=== PATIENT | male | born 1975 | race Caucasian/White ===

== ENCOUNTER 2024-05-18 07:33 | Inpatient (IN) | payer BC, SELFPAY ==
[2024-05-18] VITALS (21 sets, daily range): BP systolic 104–132; BP diastolic 67–83; PULSE 69–91; RESP 14–20; TEMP 36.4–36.8; O2SAT 93–99; BMI 27.5; BMI 29.2
--- NOTE | 2024-05-18 07:38 | CRLHL7_ITS ---
For Patients: As a result of the Cures Act, medical imaging exams and procedure reports are released immediately into your electronic medical record. You may view this report before your referring provider. If you have questions, please contact your health care provider. INDICATION: Fever and cough COMPARISON: None TECHNIQUE: Single view examination FINDINGS: TUBES AND LINES: None. HEART AND MEDIASTINUM: Enlarged heart. LUNGS AND PLEURAL SPACES: The lungs appear normal.The pleural spaces are unremarkable. OSSEOUS STRUCTURES: Age-appropriate appearance. No acute focal finding. IMPRESSION: Enlarged heart. Lungs and pleural spaces appear normal. Dictated by Jose Williamson MD @ 05/18/2024 8:15:23 AM (Electronically Signed)
[2024-05-18 08:34] LABS: PCR FLU A Negative PCR FLU A (Negative); PCR FLU B Negative PCR FLU B (Negative); PCR RSV Negative PCR RSV (Negative); SARS PCR* POSITIVE SARS-CoV-2 (Negative)
--- OUTSIDE RECORDS SUMMARY | 2024-05-18 08:39 | XMS_ITS | Clinical Summary ---
Author Organization [facility] Address [place], [place] [address] Care Team Providers Care Drupal Programmer Name Role Phone Jaron Hough MD Primary Care Provider Allergies Active Allergy Reactions Criticality Noted Date Comments Gluten 05/11/2009 Celiac disease. Medications Medication Sig Dispensed Refills Start Date End Date Status cholecalciferol (VITAMIN D3) 2,000 unit capsule Take 2 capsules by mouth once daily. 0 11/27/2011 Active multivitamin (MVI) tablet Take 1 tablet by mouth once daily. 0 11/27/2011 Active fludrocortisone (FLORINEF) 0.1 mg tabletIndications:A ddison's disease (HC) TAKE 1 TABLET(0.1 MG) BY MOUTH EVERY DAY 90 Tablet 3 09/04/2023 Active predniSONE (DELTASONE) 5 mg tabletIndications:A ddison's disease (HC) TAKE 1 TABLET BY MOUTH DAILY WITH A MEAL. 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 Postablative hypothyroidism 04/14/2013 Overview (04/14/2013): History of Graves' disease Edema 09/06/2010 Headache(784.0) 07/22/2009 Celiac disease 03/23/2008 Resolved Problems Problem Noted Date Diagnosed Date Resolved Date Glucocorticoid deficiency 01/28/2007 Unspecified hypothyroidism 0 04/14/2013 Encounters Date Type Department Care Team Description 04/28/2024 Refill [facility] [address] [place] [address] Maurice Mosquera MD Refill Request (Levothyroxine) from Last 3 Months Immunizations Name Administration Dates Next Due Influenza, IIV4 08/09/2015 MMR 05/23/1992 Pneumococcal Poly,23-Valent (Pneumovax) 04/14/20 13 Pneumococcal conj 13-Valent (Prevnar 13) 015 Tdap 06/19/2007 Social History Tobacco Use Types Packs/Day Years Used Date Smoking Tobacco: Former Cigarettes 1.5 10 0 04/06/1989 - 04/06/1999 Smokeless Tobacco: Never Tobacco Cessation:Counseling Given: Yes Alcohol Use Standard Drinks/Week Comments Yes 0 (1 standard drink = 0.6 oz pur e alcohol) sparinglly Social Connections Answer Date Recorded Frequency of Communication with Friends and Fami ly Not on file 08/13/2022 Financial Resource Strain Answer Date R ecorded Difficulty of Paying Living Expenses Not on file 08/19/2021 Difficulty of Paying Living Expenses Not on file 08/19/2021 Sex and Gender Information Value Date Recorded Sex Assigned at Not on file Gender Identity Not on file Sexual Orientation Not on file Obstetrics History Last Filed Vital Signs Vital Sign Reading Time Taken Comments Blood Pressure 116/70 12/31/2016 4:36 PM CDT Pulse 80 12/31/2016 4:36 PM CDT Temperature 36.7 ??C (98.1 ??F) 04/02/2014 4:19 PM CD T Respiratory Rate 16 12/31/2016 4:36 PM CDT Oxygen Saturation 98% 04/02/2014 4:19 PM CDT Inhaled Oxygen Concentration - - Weight 100.2 kg (221 lb) 12/31/2016 4:36 PM CDT Height 188.2 cm (6' 2.09) 08/09/2015 4:13 PM CS T Body Mass Index 28.3 08/09/2015 4:13 PM ADMISSION NURSE Plan of Treatment Health Maintenance Due Date Last Done Comments Depression screening for age 12+ 1986 HIV for age 15-65 1989 BMI (ht and wt on same day) for age 18+ 1992 Hepatitis C screening for age 18-79 1992 Colonoscopy through age 75 2019 Lipids for age 45-75 2019 01/25/2006 Tetanus booster 03/14/2021 03/14/2011 (Comp leted outside of [facility]), 06/19/2007 COVID-19 vaccine series (2023- season) 2024 12/06/2020, 11/15/2020 Influenza for age 9-49 04/19/2024 08/09/2015, 2014 Tdap Completed 06/19/2007 Pneumococcal series for age 6-64 Aged Out 08/09/2015, 04/14/2013 No longer eligibl e based on patient's age to complete this topic Procedures Procedure Name Priority Date/Time Associated Diagnosis Comments LIPID PANEL Timed 01/25/2006 7:20 AM CDT from Last 3 Months or Most Recently Relevant to Health Maintenance Results * (ABNORMAL) LIPID PANEL (01/25/2006 7:20 AM CDT) CHOLESTEROL,TOTAL 161 110 - 199 mg/dL [facility] TRIGLYCERIDES 97 <150 mg/dL [facility] HDL CHOLESTEROL 26(L) >40 mg/dL [facility] CHOL/HDL RATIO 6.19(H) <4.51 [facility] LDL CHOLESTEROL 116 <131 mg/dL [facility] PATIENT STATUS Fasting [facility] 01/25/2006 7:20 AM CDT 01/25/2006 7:12 AM CDT Jaron Hough MD CHEMISTRY [facility] [address] [place] [address] from Last 3 Months or Most Recently Relevant to Health Maintenance Care Teams Drupal Programmer Relationship Specialty Start Date End Date Jaron Hough MD [address] [place] [address] PCP - General 01/18/06
[2024-05-18] MEDS: 0.9 % SODIUM CHLORIDE 500 ML 500 ML IV (09:07)
[2024-05-18] MEDS: HYDROCORTISONE SOD SUCCINATE 50 MG/ML inj 100 MG IVP (09:08)
[2024-05-18 09:27] LABS: Basophils Absolute Auto 0.03 K/uL (0.00-0.30); Basophils Percent Auto 0.3 % (0.0-3.0); Eosinophils Absolute Auto 0.07 K/uL (0.00-0.50); Eosinophils Percent Auto 0.8 % (0.0-7.0); Hematocrit 37.6 % (37.0-53.0); Hemoglobin* 13.5 gm/dL (13.5-17.5); Immature Granulocytes Abs Auto 0.01 K/uL (0.00-0.30); Immature Granulocytes Pct Auto 0.1 %; Lymphocytes Percent Auto 4.5 % (20-44); Mean Corpuscular HGB Conc 36 gm/dL (32-36); Mean Corpuscular Hemoglobin 30 pg (26-34); Mean Corpuscular Volume 84 fL (80-100); Monocytes Percent Auto 16.4 % (0.0-11.0); Neutrophils Percent Auto 77.9 % (42.0-72.0); Platelet Count* 172 K/uL (140-440); RDW Coefficient of Variation % 11.7 % (11.5-15.5); Red Blood Count 4.48 m/uL (4.30-5.90); White Blood Count* 8.66 K/uL (4.50-11.00)
[2024-05-18 09:29] LABS: Slide Review Reflex No
[2024-05-18 09:52] LABS: Chloride* 87 mmol/L (96-114)
[2024-05-18 09:53] LABS: Potassium* 3.8 mmol/L (3.6-5.1)
[2024-05-18 09:55] LABS: Creatinine* 0.9 mg/dL (0.5-1.5); Est. Creatinine Clearance* 118.67; Estimated Glomerular Filt Rate 105 ml/min
[2024-05-18 09:56] LABS: Alanine Aminotransferase* 23 U/L (4-50); Alkaline Phosphatase* 47 U/L (40-150); Anion Gap 10 mEq/L (7-15); Aspartate Amino Transferase* 29 U/L (12-35); Bilirubin Direct* 0.2 mg/dL (0.0-0.5); Bilirubin Total* 0.9 mg/dL (0.1-1.5); Blood Urea Nitrogen* 13 mg/dL (5-24); Carbon Dioxide* 20 mmol/L (20-32); Glucose* 94 mg/dL (60-115); Magnesium* 1.6 mg/dL (1.5-2.6); Total Protein* 6.7 g/dL (6.0-8.3)
[2024-05-18 09:57] LABS: Sodium* 117 mmol/L (135-149)
[2024-05-18 09:58] LABS: D Dimer Quantitative* 0.36 ug/ml (0.00-0.50)
[2024-05-18 10:02] LABS: NT Pro B Type NatriureticPept* 243 pg/mL
[2024-05-18] MEDS: 3 % SODIUM CHLORIDE 500 ml 50 ML IV (10:52)
--- NOTE | 2024-05-18 12:03 | ED.GENADULT ---
HPI - General Adult General Date Seen: 05/18/24 Chief complaint: Shortness of Breath/Dyspnea Stated complaint: Hard time breathing, fever, cough Time Seen by Provider: 05/18/24 08:03 Source: patient, RN notes reviewed and old records reviewed Mode of arrival: ambulatory Limitations: no limitations History of Present Illness HPI narrative: Patient is a 48-year-old male who presents for evaluation of sore throat, cough, weakness. He got sick 5 days ago on , says he started to feel worse on Saturday, initially just had a sore throat but then developed cough and weakness which has gotten progressively worse instead of improving. He does note that he has a history of [place]'s and says sometimes that creates additional problems for him. He feels like he has been keeping up on fluids and has been taking all of his medications. He has not had a fever that he knows of. Did do a COVID test back on which he says was negative. He has a cough, has not felt significantly short of breath, no chest pain. Denies vomiting or diarrhea. Related Data Home Medications ?Medication ?Instructions ?Recorded ?Confirmed levothyroxine 75 mcg capsule 75 mcg PO QDAY 04/23/24 04/23/24 prednisone 5 mg tablet 5 mg PO DAILY 04/23/24 05/18/24 fludrocortisone 0.1 mg tablet 0.1 mg PO DAILY 05/18/24 05/18/24 levothyroxine 137 mcg tablet 137 mcg PO DAILY 05/18/24 05/18/24 Allergies Allergy/AdvReac Type Severity Reaction Status Date / Time wheat Allergy Intermediate violently Verified 05/18/24 08:02 ill gluten Allergy Unknown Verified 05/18/24 08:02 Review of Systems Status of ROS: Reports: 10 or more systems reviewed and unremarkable except as noted in History and below [facility] Medical History Celiac disease ?K90.0 - Celiac disease (ICD-10) Graves disease ?E05.00 - Thyrotoxicosis with diffuse goiter without thyrotoxic crisis or storm (ICD-10) 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 In general, an alert, nontoxic male. Breathing easily, looks fatigued. Head: Normocephalic, atraumatic. Eyes: Pupils are equal reactive. Extraocular movements are full. Conjunctivae are normal. ENT: Mucous membranes are slightly dry. Throat is erythematous, no exudate or edema. Neck: Supple without lymphadenopathy. No meningeal signs. Heart: Regular rate and rhythm. No murmur or rub. Lungs: Clear bilaterally. No increased work of breathing, crackles or wheezes. Abdomen: Soft and nontender. No organomegaly. Extremities: Well perfused. No edema. No calf tenderness. Pulses intact. Neurologic: Patient is alert and oriented to person and place. Speech is fluent. Face is symmetric. Moves all extremities equally. Affect: Normal. Skin: Warm and dry. Well perfused. Const: Vital Signs, click to edit/add: Vital Signs - 24 hr 05/18/24 07:52 05/18/24 09:00 05/18/24 09:30 Temperature 97.6 F Pulse Rate [Pulse Oximeter] 81 81 80 Respiratory Rate 18 16 18 Blood Pressure [Ri ght Upper Arm] 106/68 104/74 119/71 Pulse Oximetry 99 97 96 Oxygen Delivery Me thod Room Air Room Air Room Air 05/18/24 10:00 05/18/24 10:30 05/18/24 11:00 Temperature Pulse Rate [Pulse Oximeter] 75 76 79 Respiratory Rate 18 20 18 Blood Pressure [Ri ght Upper Arm] 132/73 123/74 118/75 Pulse Oximetry 96 98 98 Oxygen Delivery Me thod Room Air Room Air Room Air 05/18/24 11:30 05/18/24 12:00 05/18/24 12:30 Temperature Pulse Rate [Pulse Oximeter] 80 82 78 Respiratory Rate 18 20 18 Blood Pressure [Ri ght Upper Arm] 114/74 112/78 121/75 Pulse Oximetry 96 96 95 Oxygen Delivery Me thod Room Air Room Air Room Air 05/18/24 13:00 05/18/24 13:30 05/18/24 14:00 Temperature Pulse Rate [Pulse Oximeter] 81 78 76 Respiratory Rate 16 18 18 Blood Pressure [Ri ght Upper Arm] 118/79 118/78 125/79 Pulse Oximetry 95 93 94 Oxygen Delivery Me thod Room Air Room Air Room Air 05/18/24 14:30 05/18/24 15:00 Temperature Pulse Rate [Pulse Oximeter] 79 78 Respiratory Rate 18 20 Blood Pressure [Ri ght Upper Arm] 119/76 113/67 Pulse Oximetry 96 97 Oxygen Delivery Me thod Room Air Room Air Documenting provider has reviewed patient's vital signs: yes Course Course ED Course: An IV was placed, I ordered 500 mL of normal saline to start with. He had a portable chest x-ray, this is mostly notable for cardiomegaly. The only previous x-rays we have her from 2007 and 2013, I do not see evidence of cardiomegaly at that time. There is no evidence of congestive heart failure or infiltrate. Final radiology read as follows:Patient: RAHEEL BEGUM Facility: [facility] Site . Site : 1975 Study: XRay-Chest PORTABLE-05/18/2024 8:03:29 AM Ordering Physician: Amanda Weber Final Report: INDICATION: Fever and cough COMPARISON: None TECHNIQUE: Single view examination FINDINGS: TUBES AND LINES: None. HEART AND MEDIASTINUM: Enlarged heart. LUNGS AND PLEURAL SPACES: The lungs appear normal.The pleural spaces are unremarkable. OSSEOUS STRUCTURES: Age-appropriate appearance. No acute focal finding. IMPRESSION: Enlarged heart. Lungs and pleural spaces appear normal. In terms of labs, these are most notable for a positive COVID test and a sodium of 117. His white blood cell count is normal at 8.6, slight left shift with 78% neutrophils. Hemoglobin is normal. Notably his potassium is 3.8. BUN and creatinine are normal, normal gap. Calcium is recorded as slightly low at 8 and magnesium is 1.6. LFTs unremarkable. CRP is mildly elevated at 7. BNP his 243. His TSH is normal. D-dimer is 0.36. Overall, patient will require admission for his hyponatremia. I did order 3% saline to run over 90 minutes. He also had hydrocortisone 100 mg IV on arrival. I would recommend that he have an echo at some point given the relatively significant change in the size of his heart over the past 10 years, however I do not think this appears to be actively contributing to his symptoms today. Point of care troponin was 0, he also had an EKG which by my review shows a sinus rhythm, first-degree AV block, no acute ST segment changes, no finding suggestive of LVH. Delayed the floor due to lack of beds. Patient has been stable in the emergency department without specific complaints. Repeat metabolic panel ordered results pending. Care discussed with Dr. Rodriguez, patient admitted to hospitalist service for definitive care. Vital Signs Vital signs: Initial Vital Signs Respiratory Effort Labored 05/18/24 07:37 Respiratory Depth Shallow 05/18/24 07:37 Respiratory Pattern Tachypnea 05/18/24 07:37 Vital Signs Temperature 97.6 F 05/18/24 07:52 Pulse Rate 81 05/18/24 07:52 Respiratory Rate 18 05/18/24 07:52 Blood Pressure 106/68 05/18/24 07:52 Pulse Oximetry 99 05/18/24 07:52 Oxygen Delivery Method Room Air 05/18/24 07:52 Temperature 97.6 F 05/18/24 07:52 Pulse Rate 78 05/18/24 15:00 Respiratory Rate 20 05/18/24 15:00 Blood Pressure 113/67 05/18/24 15:00 Pulse Oximetry 97 05/18/24 15:00 Oxygen Delivery Method Room Air 05/18/24 15:00 Medications Administered Medications: Discontinued Medications Generic Name Dose Route Start Last Admin Trade Name Boniq PRN Reason Stop Dose Admin Hydrocortisone Sodium Succinate 100 mg 05/18/24 08:21 05/18/24 09:08 Hydrocortisone Sod Succinate 50 Mg/Ml Inj IVP 05/18/24 08:22 100 mg ONCE ONE Administration Sodium Chloride 500 mls @ 500 mls/hr 05/18/24 08:21 05/18/24 12:33 0.9 % Sodium Chloride 500 Ml IV 05/18/24 09:20 Infused .Q1H ONE Infusion Sodium Chloride 50 mls @ 50 mls/hr 05/18/24 10:45 05/18/24 12:32 3 % Sodium Chloride 500 Ml IV 05/18/24 11:44 Infused ONCE ONE Infusion Medical Decision Making Lab Data Labs: Lab Results 05/18/24 05/18/24 Range/Units 07:47 09:03 WBC 8.66 (4.50-11.00) K/uL RBC 4.48 (4.30-5.90) m/uL Hgb 13.5 (13.5-17.5) gm/dL Hct 37.6 (37.0-53.0) % MCV 84 (80-100) fL MCH 30 (26-34) pg MCHC 36 (32-36) gm/dL RDW Coeff of Aldo 11.7 (11.5-15.5) % Plt Count 172 (140-440) K/uL Neut % (Auto) 77.9 H (42.0-72.0) % Lymph % (Auto) 4.5 L (20-44) % Clayton % (Auto) 16.4 H (0.0-11.0) % Eos % (Auto) 0.8 (0.0-7.0) % Baso % (Auto) 0.3 (0.0-3.0) % Neut # (Auto) 6.70 (1.7-7.0) K/uL Lymph # (Auto) 0.40 L (0.90-2.90) K/uL Clayton # (Auto) 1.40 H (0.00-0.90) K/UL Eos # (Auto) 0.07 (0.00-0.50) K/uL Baso # (Auto) 0.03 (0.00-0.30) K/uL Abs Immat Gran (auto) 0.01 (0.00-0.30) K/uL Imm/Tot Granulo (auto) 0.1 % D-Dimer Quant (PE/DVT) 0.36 (0.00-0.50) ug/ml Sodium 117 L* (135-149) mmol/L Potassium 3.8 (3.6-5.1) mmol/L Chloride 87 L (96-114) mmol/L Carbon Dioxide 20 (20-32) mmol/L Anion Gap 10 (7-15) mEq/L BUN 13 (5-24) mg/dL Creatinine 0.9 (0.5-1.5) mg/dL Estimated Creat Clear 118.67 Estimated GFR 105 ml/min Glucose 94 (60-115) mg/dL Calcium 8.0 L (8.4-10.6) mg/dL Magnesium 1.6 (1.5-2.6) mg/dL Total Bilirubin 0.9 (0.1-1.5) mg/dL Direct Bilirubin 0.2 (0.0-0.5) mg/dL AST 29 (12-35) U/L ALT 23 (4-50) U/L Alkaline Phosphatase 47 (40-150) U/L C-Reactive Protein 7.0 H (0.5-1.0) mg/dL NT-Pro-B Natriuret Pep 243 pg/mL Total Protein 6.7 (6.0-8.3) g/dL Albumin 4.0 (3.3-5.0) g/dL TSH 1.480 (0.270-4.200) uIU/mL SARS-CoV-2 (PCR) POSITIVE SARS-CoV-2 A (Negative) Influenza Type A (PCR) Negative PCR FLU A (Negative) Influenza Type B (PCR) Negative PCR FLU B (Negative) RSV (PCR) Negative PCR RSV (Negative) POC Troponin I 0.00 L (0.01-0.04) ng/ml Discharge Plan Discharge Clinical Impression: Hyponatremia, COVID-19 Patient Disposition: Admitted As Observation Condition: Stable
[2024-05-18 16:00] LABS: Chloride* 89 mmol/L (96-114); Potassium* 4.3 mmol/L (3.6-5.1)
[2024-05-18 16:03] LABS: Anion Gap 7 mEq/L (7-15); Carbon Dioxide* 24 mmol/L (20-32); Estimated Glomerular Filt Rate 92 ml/min
[2024-05-18 16:04] LABS: Blood Urea Nitrogen* 12 mg/dL (5-24); Glucose* 110 mg/dL (60-115)
[2024-05-18 16:07] LABS: Sodium* 120 mmol/L (135-149)
[2024-05-18] MEDS: HYDROCORTISONE SOD SUCCINATE 50 MG/ML inj IVP (19:06)
--- NOTE | 2024-05-18 19:31 | PC.NURSE ---
Pt arrived to floor at 1730. Pt states they have a headache though it is tolerable rating 2/10. Vitally stable, spo2 greater than 90% on room air. Moves independently.
[2024-05-18] MEDS: ACETAMINOPHEN 325 MG TABLET 650 MG PO (21:45)
[2024-05-18] MEDS: ENOXAPARIN 40 MG/0.4 ML INJ SUBCUT (21:46)
[2024-05-18 22:34] LABS: Sodium* 126 mmol/L (135-149)
--- NOTE | 2024-05-18 22:49 | PM.IMHP1 ---
Hospitalist- H&P: HPI History of Present Illness Date Seen: 05/18/24 Chief complaint: Hard time breathing, fever, cough Narrative: Kristopher Chao is a 48 year old male with [place]'s disease admitted through the emergency department with a 4 day history of illness. Starting 4 days ago he had a headache. He did a home COVID test at that time which was negative. Over the next couple days symptoms progressed with the development of nasal congestion, rhinorrhea, cough, dyspnea, fever, fatigue, malaise, anorexia, nausea. He has been able to drink fluids but eating very little. For José Luis's he takes prednisone 10 mg daily plus fludrocortisone 0.1 mg daily. Last night he took an extra 10 mg of prednisone as a stress dose. He has a history of mitral valve regurgitation. In reviewing his records I see that he had an echocardiogram 09/18/2010 showing moderate mitral regurgitation. He has not had any follow-up of this since that time. 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 Review of Systems Narrative: Prior to this last few days he was feeling well. 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 He rarely drinks alcohol. He does not smoke. He follows a gluten free diet. What is your current living situation?: I presently have a place to live Problems where you live: no known problems Problems where you live details: no In the past 12 months, utilities in danger of being shut off: no In past 12 months, lack of transportation kept you from medical appts, meetings, work, or getting things needed for daily living: no In the past 12 mos, have been you worried that your food would run out before you had money to buy more?: never true In the past 12 mos, the food you bought just didn't last and you didn't have money to buy more?: never true Highest level of school completed/degree received: some college, no degree Smoking Status: Never smoker Do you use any of these nicotine containing products: None How often do you have a drink containing alcohol: monthly or less How often do you have six or more drinks on one occasion: Less than monthly AUDIT-C Alcohol total score: 2 Non-prescribed substance use: denies use Caffeine: Yes How often does anyone, including family, friends and others, physically hurt you: never How often does anyone, including family, friends and others, insult or talk down to you: never How often does anyone, including family, friends and others, threaten you with harm: never How often does anyone, including family, friends and others, scream or curse at you: never Meds Home Medications and Allergies Home Medications ?Medication ?Instructions ?Recorded ?Confirmed ?Type prednisone 5 mg tablet 10 mg PO DAILY 04/23/24 05/18/24 History cholecalciferol (vitamin D3) 50 100 mcg PO DAILY 05/18/24 05/18/24 History mcg (2,000 unit) tablet fludrocortisone 0.1 mg tablet 0.1 mg PO DAILY 05/18/24 05/18/24 History levothyroxine 137 mcg tablet 137 mcg PO DAILY 05/18/24 05/18/24 History multivitamin 1 tab PO DAILY 05/18/24 05/18/24 History Allergies Allergy/AdvReac Type Severity Reaction Status Date / Time wheat Allergy Intermediate violently Verified 05/18/24 08:02 ill gluten Allergy Unknown Verified 05/18/24 08:02 Exam Narrative: Exam Narrative: He is alert and appears in no distress. He is oriented to his circumstances and gives his own history. Oropharynx is normal. Neck is supple without mass or adenopathy. Respirations are clear to auscultation. No wheezing rales or rhonchi. Cardiovascular: S1, S2, 2/6 systolic murmur heard best at the left lower sternal border. Abdomen: Bowel sounds active. Abdomen is soft without tenderness or mass. External genitalia normal. Extremities normal. No edema. Good peripheral pulses. No rash. Const: Vital Signs, click to edit/add: Vital Signs - 24 hr 05/18/24 07:52 05/18/24 09:00 05/18/24 09:30 Temperature 97.6 F Pulse Rate Pulse Rate [Pulse Oximeter] 81 81 80 Respiratory Rate 18 16 18 Blood Pressure Blood Pressure [Le ft Arm] Blood Pressure [Ri ght Upper Arm] 106/68 104/74 119/71 Pulse Oximetry 99 97 96 Oxygen Delivery Me thod Room Air Room Air Room Air 05/18/24 10:00 05/18/24 10:30 05/18/24 11:00 Temperature Pulse Rate Pulse Rate [Pulse Oximeter] 75 76 79 Respiratory Rate 18 20 18 Blood Pressure Blood Pressure [Le ft Arm] Blood Pressure [Ri ght Upper Arm] 132/73 123/74 118/75 Pulse Oximetry 96 98 98 [facility] Room [facility] Room Air 05/18/24 11:30 05/18/24 12:00 05/18/24 12:30 Temperature Pulse Rate Pulse Rate [Pulse Oximeter] 80 82 78 Respiratory Rate 18 20 18 Blood Pressure Blood Pressure [Le ft Arm] Blood Pressure [Ri ght Upper Arm] 114/74 112/78 121/75 Pulse Oximetry 96 96 95 Oxygen Delivery De thod Room Air Room Air Room Air 05/18/24 13:00 05/18/24 13:30 05/18/24 14:00 Temperature Pulse Rate Pulse Rate [Pulse Oximeter] 81 78 76 Respiratory Rate 16 18 18 Blood Pressure Blood Pressure [Le ft Arm] Blood Pressure [Ri ght Upper Arm] 118/79 118/78 125/79 Pulse Oximetry 95 93 94 Oxygen Delivery De thod Room Air Room Air Room Air 05/18/24 14:30 05/18/24 15:00 05/18/24 15:46 Temperature Pulse Rate 91 Pulse Rate [Pulse Oximeter] 79 78 Respiratory Rate 18 20 Blood Pressure Blood Pressure [Le ft Arm] Blood Pressure [Ri ght Upper Arm] 119/76 113/67 Pulse Oximetry 96 97 96 [facility] Room Air 05/18/24 16:02 05/18/24 16:32 05/18/24 17:02 Temperature Pulse Rate 76 78 79 Pulse Rate [Pulse Oximeter] Respiratory Rate 16 14 Blood Pressure 126/78 114/72 111/70 Blood Pressure [Le ft Arm] Blood Pressure [Ri ght Upper Arm] Pulse Oximetry 97 95 97 Oxygen Delivery Me thod Room Air Room Air Room Air 05/18/24 17:30 05/18/24 17:30 05/18/24 19:00 Temperature 98.1 F 98.1 F Pulse Rate Pulse Rate [Pulse Oximeter] 71 86 Respiratory Rate 18 18 18 Blood Pressure Blood Pressure [Le ft Arm] 132/74 127/83 Blood Pressure [Ri ght Upper Arm] Pulse Oximetry 96 96 93 Oxygen Delivery Me thod Room Air Room Air Room Air Documenting provider has reviewed patient's vital signs: yes Hospitalist - H&P: Result Labs Labs: Short CBC 05/18/24 Range/Units 09:03 WBC 8.66 (4.50-11.00) K/uL Hgb 13.5 (13.5-17.5) gm/dL Hct 37.6 (37.0-53.0) % Plt Count 172 (140-440) K/uL BMP 05/18/24 05/18/24 09:03 15:42 Sodium 117 L* 120 L* Potassium 3.8 4.3 Chloride 87 L 89 L Carbon Dioxide 20 24 BUN 13 12 Creatinine 0.9 1.0 Glucose 94 110 Calcium 8.0 L 8.0 L Liver Function 05/18/24 Range/Units 09:03 Total Bilirubin 0.9 (0.1-1.5) mg/dL Direct Bilirubin 0.2 (0.0-0.5) mg/dL AST 29 (12-35) U/L ALT 23 (4-50) U/L Alkaline Phosphatase 47 (40-150) U/L Albumin 4.0 (3.3-5.0) g/dL Imaging Chest x-ray: Attestation: I have reviewed the pertinent imaging results. (Cardiomegaly without pulmonary infiltrates) Assessment and Plan Assessment and plan (1) COVID-19: Problem comment: Moderately ill without hypoxia Status: Acute (2) Hyponatremia: Problem comment: Likely due to free water intake without much food. Likely acute and likely to resolve once he resumes a normal diet. Status: Acute (3) Mitral regurgitation: Problem comment: Echocardiogram 09/18/2010 showed moderate mitral regurgitation. Patient needs follow-up of his mitral regurgitation for echocardiogram and Cardiology after COVID illness resolves Status: Acute Plan 48-year-old male admitted to the hospital with COVID illness and hyponatremia. Will provide supportive care for COVID illness. ED initiated hypertonic saline and sodium is corrected to 120. Will hold on any further interventions pending serial sodiums. Stress dose steroids for current illness can likely be tapered fairly quickly. Total Time Spent Total Time Spent: Total time spent today is 75 minutes reviewing records and discussing with patient and other providers ongoing evaluation management of hypernatremia, COVID, mitral regurgitation, Adj[place]as's.
[2024-05-18] MEDS: 5 % DEXTROSE 1000 ML 1,000 ML 50 ML IV (23:47)
[2024-05-19] MEDS: HYDROCORTISONE SOD SUCCINATE 50 MG/ML inj IVP ×3 (02:43→18:27)
[2024-05-19 02:48] VITALS: BP 128/82; PULSE 60; RESP 16; TEMP 36.4; O2SAT 98
--- NOTE | 2024-05-19 06:16 | PC.NURSE ---
End of shift [id number]: Pt AXOX4, pleasant and cooperative. Pt VSS on RA. Pt indep in room. Patient denied any pain/sob/nausea/vomiting/chest pain. Pt slept for majority of the shift. Pt appears resting with call light in reach.
[2024-05-19] MEDS: LEVOTHYROXINE 112 MCG TABLET PO (06:33)
[2024-05-19] MEDS: LEVOTHYROXINE 25 MCG TABLET PO (06:33)
[2024-05-19 06:45] LABS: Chloride* 98 mmol/L (96-114); Potassium* 4.1 mmol/L (3.6-5.1); Sodium* 129 mmol/L (135-149)
[2024-05-19 06:47] LABS: Creatinine* 0.8 mg/dL (0.5-1.5); Estimated Glomerular Filt Rate 108 ml/min
[2024-05-19 06:48] LABS: Anion Gap 7 mEq/L (7-15); Blood Urea Nitrogen* 16 mg/dL (5-24); Carbon Dioxide* 24 mmol/L (20-32); Glucose* 123 mg/dL (60-115)
[2024-05-19 06:49] LABS: Calcium* 8.6 mg/dL (8.4-10.6)
[2024-05-19 06:51] LABS: C Reactive Protein* 6.7 mg/dL (0.5-1.0)
[2024-05-19 07:54] VITALS: BP 114/84; PULSE 60; PULSE 84; RESP 16; RESP 18; O2SAT 96
--- NOTE | 2024-05-19 08:20 | PM.IMPN1 ---
Progress Note: A&P Assessment and plan (1) COVID-19: Problem details: Moderately ill without hypoxia Status: Acute (2) Hyponatremia: Problem details: - suspect this was an acute hyponatremia due to free water intake without much food. - sodium is improving, 129 today up from 117 yesterday. Goal is an increase of 4 to 6 millimole per L over 24 hours. He has been on D5 W at 50 mL an hour overnight, and I have increased this to 100 mL an hour, recheck sodium at 11:30 a.m. today. Status: Acute (3) Mitral regurgitation: Problem details: Echocardiogram 09/18/2010 showed moderate mitral regurgitation. Patient needs follow-up of his mitral regurgitation for echocardiogram and Cardiology after COVID illness resolves Status: Acute (4) [place] disease: Problem details: - Continue stress dose steroids Status: Chronic Subjective Time Seen by Provider: 07:30 Date Seen: 05/19/24 Interval history: Gianluca is feeling better today. Nausea improving. Appetite improving. Denies CP or SOB today. Exam Narrative: Exam Narrative: General: No acute distress. Awake, alert, oriented x3. No pallor. No jaundice. Oropharynx: Clear. Mucous membranes moist. Cardiovascular: Regular rate and rhythm. Grade 1/6 systolic blowing murmur loudest at the apex. Respiratory: Clear to auscultation bilaterally. No wheezes or crackles. Abdomen: Bowel sounds present. Soft, nondistended, nontender. Extremities: No pedal edema. Neuro: There are no focal deficits. Moves all extremities equally. Const: Vital Signs, click to edit/add: Vital Signs - 24 hr 05/18/24 09:00 05/18/24 09:30 05/18/24 10:00 Temperature Pulse Rate Pulse Rate [Pulse Oximeter] 81 80 75 Respiratory Rate 16 18 18 Blood Pressure Blood Pressure [Le ft Arm] Blood Pressure [Ri ght Upper Arm] 104/74 119/71 132/73 Pulse Oximetry 97 96 96 Oxygen Delivery Me thod Room Air Room Air Room Air 05/18/24 10:30 05/18/24 11:00 05/18/24 11:30 Temperature Pulse Rate Pulse Rate [Pulse Oximeter] 76 79 80 Respiratory Rate 20 18 18 Blood Pressure Blood Pressure [Le ft Arm] Blood Pressure [Ri ght Upper Arm] 123/74 118/75 114/74 Pulse Oximetry 98 98 96 Oxygen Delivery Me thod Room Air Room Air Room Air 05/18/24 12:00 05/18/24 12:30 05/18/24 13:00 Temperature Pulse Rate Pulse Rate [Pulse Oximeter] 82 78 81 Respiratory Rate 20 18 16 Blood Pressure Blood Pressure [Le ft Arm] Blood Pressure [Ri ght Upper Arm] 112/78 121/75 118/79 Pulse Oximetry 96 95 95 Oxygen Delivery Me thod Room Air Room Air Room Air 05/18/24 13:30 05/18/24 14:00 05/18/24 14:30 Temperature Pulse Rate Pulse Rate [Pulse Oximeter] 78 76 79 Respiratory Rate 18 18 18 Blood Pressure Blood Pressure [Le ft Arm] Blood Pressure [Ri ght Upper Arm] 118/78 125/79 119/76 Pulse Oximetry 93 94 96 Oxygen Delivery Me thod Room Air Room Air Room Air 05/18/24 15:00 05/18/24 15:46 05/18/24 16:02 Temperature Pulse Rate 91 76 Pulse Rate [Pulse Oximeter] 78 Respiratory Rate 20 Blood Pressure 126/78 Blood Pressure [Le ft Arm] Blood Pressure [Ri ght Upper Arm] 113/67 Pulse Oximetry 97 96 97 Oxygen Delivery Me thod Room Air Room Air 05/18/24 16:32 05/18/24 17:02 05/18/24 17:30 Temperature 98.1 F Pulse Rate 78 79 Pulse Rate [Pulse Oximeter] 71 Respiratory Rate 16 14 18 Blood Pressure 114/72 111/70 Blood Pressure [Le ft Arm] 132/74 Blood Pressure [Ri ght Upper Arm] Pulse Oximetry 95 97 96 Oxygen Delivery Me thod Room Air Room Air Room Air 05/18/24 17:30 05/18/24 19:00 05/18/24 23:00 Temperature 98.1 F 98.2 F Pulse Rate Pulse Rate [Pulse Oximeter] 86 69 Respiratory Rate 18 18 14 Blood Pressure Blood Pressure [Le ft Arm] 127/83 122/76 Blood Pressure [Ri ght Upper Arm] Pulse Oximetry 96 93 93 Oxygen Delivery Me thod Room Air Room Air Room Air 05/19/24 02:48 05/19/24 07:54 05/19/24 07:54 Temperature 97.6 F Pulse Rate Pulse Rate [Pulse Oximeter] 60 60 84 Respiratory Rate 16 16 18 Blood Pressure Blood Pressure [Le ft Arm] 128/82 114/84 Blood Pressure [Ri ght Upper Arm] Pulse Oximetry 98 96 Oxygen Delivery Me thod Room Air Room Air Labs Labs: Laboratory Results - last 24 hr 05/18/24 05/18/24 05/18/24 07:47 09:03 15:42 WBC 8.66 RBC 4.48 Hgb 13.5 Hct 37.6 MCV 84 MCH 30 MCHC 36 RDW Coeff of Aldo 11.7 Plt Count 172 Neut % (Auto) 77.9 H Lymph % (Auto) 4.[address] [place] % (Auto) 16.4 H Eos % (Auto) 0.8 Baso % (Auto) 0.3 Neut # (Auto) 6.70 Lymph # (Auto) 0.[address] [place] # (Auto) 1.40 H Eos # (Auto) 0.07 Baso # (Auto) 0.03 Abs Immat Gran (auto) 0.01 Imm/Tot Granulo (auto) 0.1 D-Dimer Quant (PE/DVT) 0.36 Sodium 117 L* 120 L* Potassium 3.8 4.3 Chloride 87 L 89 L Carbon Dioxide 20 24 Anion Gap 10 7 BUN 13 12 Creatinine 0.9 1.0 Estimated Creat Clear 118.67 106.80 Estimated GFR 105 92 Glucose 94 110 Calcium 8.0 L 8.0 L Magnesium 1.6 Total Bilirubin 0.9 Direct Bilirubin 0.2 AST 29 ALT 23 Alkaline Phosphatase 47 C-Reactive Protein 7.0 H NT-Pro-B Natriuret Pep 243 Total Protein 6.7 Albumin 4.0 TSH 1.480 SARS-CoV-2 (PCR) POSITIVE SARS-CoV-2 A Influenza Type A (PCR) Negative PCR FLU A Influenza Type B (PCR) Negative PCR FLU B RSV (PCR) Negative PCR RSV POC Troponin I 0.00 L 05/18/24 05/19/24 22:15 05:58 WBC RBC Hgb Hct MCV MCH MCHC RDW Coeff of Aldo Plt Count Neut % (Auto) Lymph % (Auto) [place] % (Auto) Eos % (Auto) Baso % (Auto) Neut # (Auto) Lymph # (Auto) [place] # (Auto) Eos # (Auto) Baso # (Auto) Abs Immat Gran (auto) Imm/Tot Granulo (auto) D-Dimer Quant (PE/DVT) Sodium 126 L 129 L Potassium 4.1 Chloride 98 Carbon Dioxide 24 Anion Gap 7 BUN 16 Creatinine 0.8 Estimated Creat Clear 133.50 Estimated GFR 108 Glucose 123 H Calcium 8.6 Magnesium Total Bilirubin Direct Bilirubin AST ALT Alkaline Phosphatase C-Reactive Protein 6.7 H NT-Pro-B Natriuret Pep Total Protein Albumin TSH SARS-CoV-2 (PCR) Influenza Type A (PCR) Influenza Type B (PCR) RSV (PCR) POC Troponin I
[2024-05-19] MEDS: FLUDROCORTISONE ACETATE 0.1 MG TABLET PO (09:26)
--- NOTE | 2024-05-19 10:51 | NUTR.NU ---
Addendum entered and electronically signed by Nubia Sutton RD 05/19/24 12:00: RDN was contacted by nursing staff, informing RDN of questions patient has. Patient spoke to RDN via phone, asking if there is a list of gluten-free foods he may have to review before ordering meals. RDN obtained a list of gluten-free foods and provided to patient. Also provided a list of gluten-free pre-made meals that are available. Patient expressed his gratitude. RDN will continue to monitor. Original Note: RDN with nutrition screen related to poor appetite prior to admit and hx of celiac disease. Patient admitted for covid positive. Current weight 227 lbs 12.8 oz; height 6ft 3in; BMI 28.5 kg/m2. No weight history in EMR to assess. Current diet is Regular. No meal intakes recorded yet. Due to patient being on isolation protocol due to covid positive, RDN not able to visit patient in room at this time. RDN attempted to speak with patient via room phone, however he did not answer. RDn spoke to patient's nurse whom reports he is doing well. Had no concerns. Patient is aware of gluten free options available, nurse reports she will ensure he knows of food options available. RDN will continue to monitor.
[2024-05-19 11:00] VITALS: BP 128/83; PULSE 76; RESP 18; TEMP 36.3; O2SAT 96
[2024-05-19 12:31] LABS: Sodium* 130 mmol/L (135-149)
[2024-05-19 15:00] VITALS: BP 138/86; PULSE 76; PULSE 83; RESP 18; TEMP 36.4; O2SAT 94
[2024-05-19] MEDS: 5 % DEXTROSE 1000 ML 1,000 ML 200 ML IV (15:45)
[2024-05-19 18:16] LABS: Sodium* 130 mmol/L (135-149)
[2024-05-19] MEDS: guaiFENesin 100 MG/ML CUP PO (18:26)
[2024-05-19 19:00] VITALS: BP 146/96; PULSE 86; RESP 16; TEMP 36.4; O2SAT 98
--- NOTE | 2024-05-19 19:35 | PC.NURSE ---
Nursing Care Hours: [id number] Pt this shift calm and cooperative, alert and oriented. Independent in room. No c/o pain. VSS. IV fluids increased to 200ml/hr. Vibratory PEP and guaifenesin given for productive cough that pt c/o is hard expel. Decreased production throughout shift. Slight crackling to RLL.
[2024-05-19] MEDS: ENOXAPARIN 40 MG/0.4 ML INJ SUBCUT (20:36)
[2024-05-19] MEDS: SODIUM CHLORIDE 0.9 % (FLUSH) 10 ML SYRINGE 5 ML IVF (20:38)
[2024-05-19 23:00] VITALS: BP 123/84; PULSE 64; PULSE 86; RESP 14; TEMP 36.6; O2SAT 95
[2024-05-20] MEDS: HYDROCORTISONE SOD SUCCINATE 50 MG/ML inj IVP (02:48)
[2024-05-20 02:49] VITALS: BP 106/64; PULSE 64; RESP 16; TEMP 36.8; O2SAT 95
--- NOTE | 2024-05-20 05:56 | PC.NURSE ---
End of shift [id number]: Pt alert and oriented x4, calm, and cooperative. Indep in room. Pt passing flatus and stated multiple soft BMs during the day. Pt?denies pain throughout the shift. VSS. IV SL. Activity and Vibratory PEP use continued to be encouraged. Lung sounds clear to auscultation. Pt tolerating diet/fluids well. Pt appears resting with call light in reach. ?
[2024-05-20] MEDS: LEVOTHYROXINE 112 MCG TABLET PO (06:17)
[2024-05-20] MEDS: LEVOTHYROXINE 25 MCG TABLET PO (06:17)
[2024-05-20 06:48] LABS: Chloride* 97 mmol/L (96-114); Sodium* 131 mmol/L (135-149)
[2024-05-20 06:49] LABS: Potassium* 3.6 mmol/L (3.6-5.1)
[2024-05-20 06:51] LABS: Creatinine* 0.9 mg/dL (0.5-1.5); Est. Creatinine Clearance* 118.67; Estimated Glomerular Filt Rate 105 ml/min
[2024-05-20 06:52] LABS: Anion Gap 7 mEq/L (7-15); Blood Urea Nitrogen* 13 mg/dL (5-24); Calcium* 8.6 mg/dL (8.4-10.6); Carbon Dioxide* 27 mmol/L (20-32); Glucose* 107 mg/dL (60-115)
[2024-05-20 06:55] LABS: C Reactive Protein* 2.9 mg/dL (0.5-1.0)
[2024-05-20 08:43] VITALS: BP 146/89; PULSE 73; RESP 16; TEMP 36.8; O2SAT 99
[2024-05-20] MEDS: FLUDROCORTISONE ACETATE 0.1 MG TABLET PO (08:46)
[2024-05-20] MEDS: SODIUM CHLORIDE 0.9 % (FLUSH) 10 ML SYRINGE 5 ML IVF (08:47)
--- NOTE | 2024-05-20 10:15 | P.DS_ITS ---
DS: Providers Provider Date Seen: 05/20/24 Date of admission: 05/18/24 17:15 Primary care physician: Jaron Hough MD Admitting Clinician: Jose Rodriguez MD Attending Physician on discharge: [facility]charge: 05/20/24 DS: Diagnosis Discharge Diagnosis (1) Hyponatremia: Status: Acute Problem details: -likely related to free water intake and SIADH from acute illness -stabilized at 131 prior to discharge -he should see Dr. Patterson within the week follow-up BMP (2) COVID-19: Status: Acute Problem details: -improved -no COVID specific medications (3) [place] disease: Status: Chronic Problem details: - treated with hydrocortisone IV -3 day taper at discharge to return to baseline 10mg daily of prednisone (4) Mitral regurgitation: Status: Acute Problem details: Echocardiogram 09/18/2010 showed moderate mitral regurgitation. Patient needs follow-up of his mitral regurgitation for echocardiogram and Cardiology after COVID illness resolves DS: Summary Hospital Course Hospital Course: FINAL DIAGNOSIS/FOLLOW UP ISSUES: COVID - no COVID specific medications were prescribed. He was not hypoxic. Continue home recuperation [place]'s disease-stress dose steroids were employed, hydrocortisone 50 mg IV q.6. This was transition to oral prednisone on the morning of discharge, 40 mg. 3 day taper was prescribed. Hyponatremia-patient's zakia was 117. This was felt secondary to free water intake and acute SIADH from acute illness. Discharge level was 131. Follow-up with PCP within the next week for BMP. BRIEF HOSPITAL COURSE: Patient was admitted for two days. Synopsis of acute inpatient issues are outlined above. Chronic medical conditions with notable findings outlined above. Was unclear how much of his symptomatology was from a severe hyponatremia verses acute COVID. He was not hypoxic. He was not treated with COVID specific therapies. He received a bolus of hypertonic saline in the emergency room. He had a rapid return of a normal sodium. In fact he was actually given D5 to slow his rate of rise. He had no neurologic side effects. DISCHARGE MEDICATIONS: See Reconciled list - SIGNIFICANT CHANGES: Three day prednisone taper Specific instructions to the patient and follow-up are outlined below. REVIEW OF SYSTEMS No new chest pain or dyspnea Pain controlled No voiding difficulties Tolerating diet challenge PHYSICAL EXAM: CONSTITUTIONAL: Alert, awake. Sitting comfortably in the bedside chair. VITAL SIGNS: see record. HEENT: Normocephalic, atraumatic. PERRL, EOMI, conjunctivae pink, no scleral icterus. Ears and nose externally normal. Pharynx normal. NECK: No JVD. No carotid bruit, no thyromegaly, no adenopathy. CHEST: Clear to auscultation bilaterally. HEART: S1 and S2 normal. Edema ABDOMEN: Soft, nontender. Normal bowel sounds. MUSCULOSKELETAL: No gross joint deformity or swelling. NEURO: Cranial nerves intact. Grossly intact. No asymmetric findings. SKIN: No rashes, petechiae, concerning changes PSYCHIATRIC: Mood euthymic. DISPOSITION: Home with his . Time spent on discharge 37 minutes. Status at Discharge Functional status at discharge: independent ambulation Overall status at discharge: patient is progressing back to baseline Time Spent with Patient Time attestation: Total time spent providing and/or coordinating discharge services: Time spent: Greater than 30 minutes Exam Const: Vital Signs, click to edit/add: Vital Signs - 24 hr 05/19/24 11:00 05/19/24 15:00 05/19/24 15:00 Temperature 97.3 F L 97.6 F Pulse Rate [Pulse Oximeter] 76 76 83 Respiratory Rate 18 18 18 Blood Pressure [Le ft Arm] 128/83 138/86 Pulse Oximetry 96 94 Oxygen Delivery Nj thod Room Air Room Air 05/19/24 19:00 05/19/24 23:00 05/19/24 23:00 Temperature 97.6 F 97.8 F Pulse Rate [Pulse Oximeter] 86 86 64 Respiratory Rate 16 14 Blood Pressure [Le ft Arm] 146/96 H 123/84 Pulse Oximetry 98 95 Oxygen Delivery Nj thod Room Air Room Air 05/20/24 02:49 05/20/24 08:43 Temperature 98.2 F 98.3 F Pulse Rate [Pulse Oximeter] 64 73 Respiratory Rate 16 16 Blood Pressure [Le ft Arm] 106/64 146/89 H Pulse Oximetry 95 [facility] DS: Data Data Completed and Pending Labs on day of discharge: Labs from last 24 hours 05/20/24 05/19/24 05/19/24 06:01 17:57 12:03 Sodium 131 L 130 L 130 L Potassium 3.6 Chloride 97 Carbon Dioxide 27 Anion Gap 7 BUN 13 Creatinine 0.9 Estimated Creat Clear 118.67 Estimated GFR 105 Glucose 107 Calcium 8.6 C-Reactive Protein 2.9 H Discharge Plan Discharge Disposition: Home, Self-Care Date of Admission: 05/18/24 17:15 Attending Provider on Discharge: Samanta Sawyer Primary Care Provider: Jaron Hough Condition: Stable Anticipated Discharge Date/Time: 05/20/24 10:14 Discharge Medications: New prednisone 20 mg tablet 40 mg PO DAILY Qty: 3 0RF Rx Instructions: 40 mg 10/3 20mg 10/4 10mg (baseline) on 05/23 Continued prednisone 5 mg tablet 10 mg PO DAILY levothyroxine 137 mcg tablet 137 mcg PO DAILY fludrocortisone 0.1 mg tablet 0.1 mg PO DAILY multivitamin Tablet 1 tab PO DAILY cholecalciferol (vitamin D3) 50 mcg (2,000 unit) tablet 100 mcg PO DAILY Discharge Orders: Discharge Order (Routine); Ordered 05/20/24 Ordered By: Samanta Sawyer Patient Education: Hyponatremia (DC), COVID-19 (Coronavirus Disease 2019) (DC) Additional Instructions: last dose of hydrocortisone IV was 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 Hough check your sodium early next week Activity Level: Activity as Tolerated Discharge Diet: Regular Follow Up Appointments: Jaron Hough MD [Primary Care Provider] - (1 week) Forms: [employer] Info Instructions
[2024-05-20] MEDS: predniSONE 20 MG TABLET 40 MG PO (10:47)
== END 2024-05-20 11:31 | disposition home or self-care (01) | DRG 137 ==
LOC: ED 12:10 → MEDSURG 17:14
PROVIDERS: Family Medicine; Physician Assistant; Admitting Provider Family Medicine; Emergency Provider Emergency Medicine; PCP Family Medicine; Visit Provider Family Medicine
DX: U07.1 COVID-19 (principal); E22.2 Syndrome of inappropriate secretion of antidiuretic hormone; I34.0 Nonrheumatic mitral (valve) insufficiency; E27.1 Primary adrenocortical insufficiency; R01.1 Cardiac murmur, unspecified
CPT/HCPCS: 36415; 71045; 80048; 80076; 83735; 83880; 84295; 84443; 84484; 85025; 85379; 86140; 87631; 93005; 99284; 99285; A9270; J1650; J1720; J7030; J7070; J7131; J7512

== ENCOUNTER 2024-05-21 17:46 | Emergency (ER) | payer BC, SELFPAY ==
[2024-05-21 18:11] VITALS: BP 155/91; PULSE 70; RESP 14; TEMP 36.7; O2SAT 98; BMI 28.1
--- NOTE | 2024-05-21 19:38 | ED.GENADULT ---
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 He was admitted to the hospital and was kept for couple of days, sodium at the time of discharge was 131. He comes in today because of concerns about ?hallucinations?. What he really describes is that when he closes his eyes, it seems mostly at bedtime, he says there shows kind of a kaleidoscope of colors, shapes, patterns. He says he can sometimes see these with his eyes open if it is dark in the room as well. He was having this the night before he was discharged from hospital, attributed it to poor sleep. However, he says it was even more vivid last night when he was at home. He has not had any delusional thinking, has not had any auditory hallucinations and has not had any hallucinations which are scary to him. He was mostly concerned that his electrolytes might again be out of whack. He has not had any headaches or neurologic changes otherwise. He does feel like his stomach has been a little upset, he has had some constipation. No significant nausea or vomiting. Related Data Home Medications ?Medication ?Instructions ?Recorded ?Confirmed prednisone 5 mg tablet 10 mg PO DAILY 04/23/24 05/21/24 cholecalciferol (vitamin D3) 50 100 mcg PO DAILY 05/18/24 05/21/24 mcg (2,000 unit) tablet fludrocortisone 0.1 mg tablet 0.1 mg PO DAILY 05/18/24 05/21/24 levothyroxine 137 mcg tablet 137 mcg PO DAILY 05/18/24 05/21/24 multivitamin 1 tab PO DAILY 05/18/24 05/21/24 Previous Rx's ?Medication ?Instructions ?Recorded prednisone 20 mg tablet 40 mg (2 x 20 mg) PO DAILY #3 tabs 05/20/24 Allergies Allergy/AdvReac Type Severity Reaction Status Date / Time wheat Allergy Intermediate violently Verified 05/21/24 18:18 ill gluten Allergy Unknown Verified 05/21/24 18:18 Review of Systems Status of ROS: Reports: 10 or more systems reviewed and unremarkable except as noted in History and below [facility] Medical History Mitral regurgitation ?I34.0 - Nonrheumatic mitral (valve) insufficiency (ICD-10) Celiac disease ?K90.0 - Celiac disease (ICD-10) Graves disease ?E05.00 - Thyrotoxicosis with diffuse goiter without thyrotoxic crisis or storm (ICD-10) [place] disease ?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 He rarely drinks alcohol. He does not smoke. He follows a gluten free diet. What is your current living situation?: I presently have a place to live Problems where you live: no known problems Problems where you live details: no In the past 12 months, utilities in danger of being shut off: no In past 12 months, lack of transportation kept you from medical appts, meetings, work, or getting things needed for daily living: no In the past 12 mos, have been you worried that your food would run out before you had money to buy more?: never true In the past 12 mos, the food you bought just didn't last and you didn't have money to buy more?: never true Highest level of school completed/degree received: some college, no degree Smoking Status: Never smoker Do you use any of these nicotine containing products: None How often do you have a drink containing alcohol: monthly or less How often do you have six or more drinks on one occasion: Less than monthly AUDIT-C Alcohol total score: 2 Non-prescribed substance use: denies use Caffeine: Yes How often does anyone, including family, friends and others, physically hurt you: never How often does anyone, including family, friends and others, insult or talk down to you: never How often does anyone, including family, friends and others, threaten you with harm: never How often does anyone, including family, friends and others, scream or curse at you: never Exam Narrative: Exam Narrative: Vital signs as noted above. In general, an alert, well-appearing patient. He is conversant, pleasant, cooperative. His is with him. Head: Normocephalic, atraumatic. Eyes: Pupils are equal reactive. Extraocular movements are full. Conjunctivae are normal. ENT: Mucous membranes are moist. Throat is normal. Neck: Supple without lymphadenopathy. Heart: Regular rate and rhythm. Systolic murmur heard best at the apex. Lungs: Clear bilaterally. No increased work of breathing, crackles or wheezes. Abdomen: Soft and nontender. No organomegaly. Extremities: Well perfused. No edema. No calf tenderness. Pulses intact. Neurologic: Patient is alert and oriented to person and place. Speech is fluent. Face is symmetric. Moves all extremities equally. Affect: Normal affect and thinking. Skin: Warm and dry. Well perfused. Const: Vital Signs, click to edit/add: Vital Signs - 24 hr 05/21/24 18:11 Temperature 98.0 F Pulse Rate [Pulse Oximeter] 70 Respiratory Rate 14 Blood Pressure [Ri ght Upper Arm] 155/91 H Pulse Oximetry 98 Oxygen Delivery Me thod Room Air Documenting provider has reviewed patient's vital signs: yes Course Course ED Course: Patient presents with fairly unremarkable vital signs, normal exam, for normal mood and affect. He is not describing true hallucinations as best I can tell, he is not seeing things throughout the day but is having these sort of vivid almost dreamlike experiences. These always occur seemingly when he is in bed and usually when his eyes are closed. He is mostly concerned about his lab work, we can certainly recheck things in make sure that his numbers to look good. Discussed with him I may not have an answer for him as to why he is having this experience currently. He is not in any new medications that I can easily identify as possible culprits. I do think sleep deprivation and or COVID could be playing a role. He is also on a slightly higher dose of steroid which could be contributing. His labs here reassuring, sodium today is 132, other electrolytes are normal. White blood cell count is 8.8 hemoglobin is normal and. LFTs normal. Reviewed this with him. Diagnosis seems possibly to be that of hip no palm think hallucinations, I have asked him to see how he does over the next few days, if symptoms are becoming disruptive, discuss with primary care, sleep study could be considered. He has an appointment upcoming. Return any time for acute worsening or new symptoms. Vital Signs Vital signs: Initial Vital Signs Temperature 98.0 F 05/21/24 18:11 Temperature Source Temporal Artery Scan 05/21/24 18:11 Pulse Rate 70 05/21/24 18:11 Respiratory Rate 14 05/21/24 18:11 Blood Pressure 155/91 H 05/21/24 18:11 Blood Pressure Mean 112 H 05/21/24 18:11 Blood Pressure Position Sitting 05/21/24 18:11 Pulse Oximetry 98 05/21/24 18:11 Oxygen Delivery Method Room Air 05/21/24 18:11 Vital Signs Temperature 98.0 F 05/21/24 18:11 Pulse Rate 70 05/21/24 18:11 Respiratory Rate 14 05/21/24 18:11 Blood Pressure 155/91 H 05/21/24 18:11 Pulse Oximetry 98 05/21/24 18:11 Oxygen Delivery Method Room Air 05/21/24 18:11 Temperature 98.0 F 05/21/24 18:11 Pulse Rate 70 05/21/24 18:11 Respiratory Rate 14 05/21/24 18:11 Blood Pressure 155/91 H 05/21/24 18:11 Pulse Oximetry 98 05/21/24 18:11 Oxygen Delivery Method Room Air 05/21/24 18:11 Medical Decision Making Lab Data Labs: Lab Results 05/21/24 Range/Units 19:44 WBC 8.78 (4.50-11.00) K/uL RBC 4.77 (4.30-5.90) m/uL Hgb 14.3 (13.5-17.5) gm/dL Hct 41.9 (37.0-53.0) % MCV 88 (80-100) fL MCH 30 (26-34) pg MCHC 34 (32-36) gm/dL RDW Coeff of Aldo 12.3 (11.5-15.5) % Plt Count 267 (140-440) K/uL Neut % (Auto) 88.2 H (42.0-72.0) % Lymph % (Auto) 6.7 L (20-44) % Ness % (Auto) 4.8 (0.0-11.0) % Eos % (Auto) 0.0 (0.0-7.0) % Baso % (Auto) 0.1 (0.0-3.0) % Neut # (Auto) 7.70 H (1.7-7.0) K/uL Lymph # (Auto) 0.60 L (0.90-2.90) K/uL Ness # (Auto) 0.40 (0.00-0.90) K/UL Eos # (Auto) 0.00 (0.00-0.50) K/uL Baso # (Auto) 0.01 (0.00-0.30) K/uL Abs Immat Gran (auto) 0.02 (0.00-0.30) K/uL Imm/Tot Granulo (auto) 0.2 % Sodium 132 L (135-149) mmol/L Potassium 4.3 (3.6-5.1) mmol/L Chloride 97 (96-114) mmol/L Carbon Dioxide 27 (20-32) mmol/L Anion Gap 8 (7-15) mEq/L BUN 18 (5-24) mg/dL Creatinine 0.9 (0.5-1.5) mg/dL Estimated Creat Clear 118.67 Estimated GFR 105 ml/min Glucose 117 H (60-115) mg/dL Calcium 8.8 (8.4-10.6) mg/dL Magnesium 2.0 (1.5-2.6) mg/dL Total Bilirubin 0.4 (0.1-1.5) mg/dL Direct Bilirubin 0.2 (0.0-0.5) mg/dL AST 28 (12-35) U/L ALT 30 (4-50) U/L Alkaline Phosphatase 52 (40-150) U/L Total Protein 7.7 (6.0-8.3) g/dL Albumin 4.6 (3.3-5.0) g/dL Discharge Plan Discharge Clinical Impression: Hallucination, hypnopompic Patient Disposition: Home, Self-Care Condition: Stable Instructions: Nonpsychiatric Hallucinations (ED) Additional Instructions: Primary care follow-up as planned. Return as needed for acute worsening or new symptoms. Prescriptions: No Action prednisone 5 mg tablet 10 mg PO DAILY levothyroxine 137 mcg tablet 137 mcg PO DAILY fludrocortisone 0.1 mg tablet 0.1 mg PO DAILY multivitamin Tablet 1 tab PO DAILY cholecalciferol (vitamin D3) 50 mcg (2,000 unit) tablet 100 mcg PO DAILY prednisone 20 mg tablet 40 mg PO DAILY Qty: 3 0RF Rx Instructions: 40 mg 10/3 20mg 10/4 10mg (baseline) on 05/23 Follow Up/Referrals: Jaron Hough MD [Primary Care Provider] - Stand Alone Forms: [facility] [employer] Info Instructions
[2024-05-21 19:52] LABS: Basophils Absolute Auto 0.01 K/uL (0.00-0.30); Basophils Percent Auto 0.1 % (0.0-3.0); Hematocrit 41.9 % (37.0-53.0); Hemoglobin* 14.3 gm/dL (13.5-17.5); Immature Granulocytes Abs Auto 0.02 K/uL (0.00-0.30); Immature Granulocytes Pct Auto 0.2 %; Lymphocytes Percent Auto 6.7 % (20-44); Mean Corpuscular HGB Conc 34 gm/dL (32-36); Mean Corpuscular Hemoglobin 30 pg (26-34); Mean Corpuscular Volume 88 fL (80-100); Monocytes Percent Auto 4.8 % (0.0-11.0); Neutrophils Percent Auto 88.2 % (42.0-72.0); Platelet Count* 267 K/uL (140-440); RDW Coefficient of Variation % 12.3 % (11.5-15.5); Red Blood Count 4.77 m/uL (4.30-5.90); White Blood Count* 8.78 K/uL (4.50-11.00)
[2024-05-21 19:54] LABS: Slide Review Reflex No
[2024-05-21 20:00] VITALS: PULSE 62; O2SAT 97
[2024-05-21 20:03] LABS: Albumin* 4.6 g/dL (3.3-5.0); Chloride* 97 mmol/L (96-114)
[2024-05-21 20:04] LABS: Potassium* 4.3 mmol/L (3.6-5.1); Sodium* 132 mmol/L (135-149)
[2024-05-21 20:06] LABS: Anion Gap 8 mEq/L (7-15); Carbon Dioxide* 27 mmol/L (20-32); Creatinine* 0.9 mg/dL (0.5-1.5); Est. Creatinine Clearance* 118.67; Estimated Glomerular Filt Rate 105 ml/min
[2024-05-21 20:07] LABS: Alanine Aminotransferase* 30 U/L (4-50); Alkaline Phosphatase* 52 U/L (40-150); Aspartate Amino Transferase* 28 U/L (12-35); Bilirubin Direct* 0.2 mg/dL (0.0-0.5); Bilirubin Total* 0.4 mg/dL (0.1-1.5); Blood Urea Nitrogen* 18 mg/dL (5-24); Calcium* 8.8 mg/dL (8.4-10.6); Glucose* 117 mg/dL (60-115); Total Protein* 7.7 g/dL (6.0-8.3)
--- OUTSIDE RECORDS SUMMARY | 2024-05-21 20:13 | XMS_ITS | Clinical Summary ---
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 Unspecified hypothyroidism 0 04/14/2013 Encounters Date Type Department Care Team Description 05/21/2024 Telephone [facility] [address] [place] [place] [address] Jaron Hough MD Follow Up 05/21/2024 Nurse Triage [facility] [address] [place] [address] Jaron Hough MD tingling and vision change 05/18/2024 Orders Only [facility] Scanner 1 scan: (1-Ord) [facility], XR CHEST 1V PORTABLE, 05/18/2024 04/28/2024 Refill [facility] [address] [facility] [address] [place] [address] Maurice Mosquera MD Refill Request (Levothyroxine) from [...] Body Mass Index 28.3 08/09/2015 4:13 PM [facility] Plan of Treatment Upcoming Encounters Date Type Department Care Team (Late st Contact Info) Description 05/27/2024 1:15 PM CDT Office Visit [facility] [address] [address] Jaron Hough MD [address] [place] [address] Health Maintenance Due Date Last Done Comments Depression screening for age 12+ 1986 HIV for age 15-65 1989 BMI (ht and wt on same day) for age 18+ 1992 Hepatitis C screening for age 18-79 1992 Colonoscopy through age 75 2019 Lipids for age 45-75 2019 01/25/2006 Tetanus booster 03/14/2021 03/14/2011 (Comp leted outside of [facility]), 06/19/2007 COVID-19 vaccine series ( season) 2024 12/06/2020, 11/15/2020 Influenza for age 9-49 04/19/2024 08/09/2015, 2014 Tdap Completed 06/19/2007 Pneumococcal series for age 6-64 Aged Out 08/09/2015, 04/14/2013 No longer eligibl e based on patient's age to complete this topic Procedures Procedure Name Priority Date/Time Associated Diagnosis Comments SCAN-RADIOLOGY REPORT 05/18/2024 12:00 AM CDT LIPID PANEL Timed 01/25/2006 7:20 AM CDT from Last 3 Months or Most Recently Relevant to Health Maintenance Results * SCAN-RADIOLOGY REPORT (05/18/2024 12:00 AM CDT) Anatomical Region Laterality Modality Other Scanner OTHER * (ABNORMAL) LIPID PANEL (01/25/2006 7:20 AM CDT) CHOLESTEROL,TOTAL 161 110 - 199 mg/dL [facility] TRIGLYCERIDES 97 <150 mg/dL [facility] HDL CHOLESTEROL 26(L) >40 mg/dL [facility] CHOL/HDL RATIO 6.19(H) <4.51 [facility] LDL CHOLESTEROL 116 <131 mg/dL [facility] PATIENT STATUS Fasting [facility] 01/25/2006 7:20 AM CDT 01/25/2006 7:12 AM CDT Jaron Hough MD CHEMISTRY [facility] [address] [place] [address] from Last 3 Months or Most Recently Relevant to Health Maintenance Care Teams Starch Crab Relationship Specialty Start Date End Date Jaron Hough MD [address] [place] [address] PCP - General 01/18/06
[2024-05-21 20:15] VITALS: PULSE 67; O2SAT 98
== END 2024-05-21 20:43 | disposition home or self-care (01) ==
PROVIDERS: Emergency Provider Emergency Medicine; PCP Family Medicine
DX: R44.3 Hallucinations, unspecified (principal); E87.6 Hypokalemia
CPT/HCPCS: 36415; 80048; 80076; 83735; 85025; 99283; 99284